=== PATIENT | female | born 1985 ===

== ENCOUNTER 2022-04-15 05:30 | Day surgery (SDC) | payer OTHER ==
[~2022-04-15 05:30] MED LIST: BUSPAR; FIRICET; RESTORIL7.5 MG PO; TOPAMAX25 MG PO
[2022-04-15] MEDS ORDERED: RECTICARE30 GM TOP (09:15)
[2022-04-15] MEDS ORDERED: PERCOCET 5-3251 EACH PO (09:15)
== END 2022-04-15 12:15 | disposition home or self-care (01) ==
LOC: CIR.AMB 05:30
PROVIDERS: ATTEND Surgery
DX: K64.8 Other hemorrhoids (principal); R19.5 Other fecal abnormalities; R19.4 Change in bowel habit; R19.7 Diarrhea, unspecified; Z20.822 Contact with and (suspected) exposure to COVID-19